=== PATIENT | female | born 1965 | race African-American/Black ===

== ENCOUNTER 2022-06-01 19:16 | Emergency (ER) | payer OTHER ==
[~2022-06-01] VITALS: Ht 172.7 cm; Wt 81.8 kg
[2022-06-01] MEDS ORDERED: ACETAMINOPHEN 325 MG TABLET PO ONE (22:45)
[2022-06-02 00:37] VITALS: BP 120/84
== END 2022-06-02 00:39 | disposition home or self-care (01) ==
LOC: EMS 19:17
DX: S60.221A Contusion of right hand, initial encounter (principal); W19.XXXA Unspecified fall, initial encounter; Y93.89 Activity, other specified; Y92.89 Other specified places as the place of occurrence of the external cause; Y99.8 Other external cause status
CPT/HCPCS: 99283